=== PATIENT | female | born 1975 | race African-American/Black ===

== ENCOUNTER 2023-10-27 01:00 | Emergency (ER) | payer MEDICAID ==
[~2023-10-27] VITALS: Ht 167.6 cm; Wt 76.0 kg
[2023-10-27 01:03] VITALS: BP 143/86; PULSE 95; RESP 15; TEMP 98.4; O2SAT 99
[2023-10-27 04:25] LABS: BASOPHILS % 0.5 % (0.0-2.0); EOSINOPHILS % 1.8 % (0.0-5.0); HEMATOCRIT. 35.4 % (36.0-48.0); HEMOGLOBIN. 12.5 g/dL (12.0-16.0); LYMPHOCYTES % 26.9 % (20.0-50.0); MEAN CORPUSCULAR HEMOGLOBIN 32.7 pg (28.0-32.0); MEAN CORPUSCULAR HGB CONC 35.3 g/dL (31.0-37.0); MEAN CORPUSCULAR VOLUME 92.5 fL (81.0-99.0); MEAN PLATELET VOLUME 8.4 fl (7.4-10.4); MONOCYTES % 12.2 % (2.0-8.0); NEUTROPHILS % 58.6 % (40.0-76.0); PLATELET 174 x1000/uL (130-400); RED BLOOD CELL COUNT 3.82 mill/uL (4.2-5.4); WHITE BLOOD COUNT 6.5 x1000/uL (4.5-11.0)
[2023-10-27 04:31] LABS: INR 0.9; PROTHROMBIN TIME 10.1 sec (9.6-11.0)
[2023-10-27 04:46] LABS: ALANINE AMINOTRANSFERASE 18 IU/L (10-49); ALBUMIN 3.6 g/dL (3.2-4.8); ASPARTATE AMINOTRANSFERASE 18 IU/L (<34); BILIRUBIN TOTAL 0.6 mg/dL (0.1-1.0); CARBON DIOXIDE 20 mEq/L (21-32); CHLORIDE 108 mEq/L (98-107); CREATININE 0.4 mg/dL (0.6-1.0); GLUCOSE 104 mg/dL (70-105); POTASSIUM 3.7 mEq/L (3.5-5.1); PROTEIN TOTAL 6.4 g/dL (6.0-8.3); SODIUM 136 mEq/L (136-145); UREA NITROGEN BLOOD 8 mg/dL (9-23)
[2023-10-27 04:53] LABS: B-HCG QUANTITATIVE > 200000 mIU/mL (<3)
[2023-10-27] MEDS ORDERED: PROG200C37 MT (05:31)
== END 2023-10-27 07:44 | disposition home or self-care (01) ==
LOC: ER 01:00
DX: O30.122 Triplet pregnancy with two or more monoamniotic fetuses, second trimester (principal); Z3A.15 15 weeks gestation of pregnancy; O46.92 Antepartum hemorrhage, unspecified, second trimester
CPT/HCPCS: 36415; 76805; 76810; 80053; 84702; 85025; 86850; 86900; 99284